=== PATIENT | female | born 1980 | race Caucasian/White ===

== ENCOUNTER 2020-05-05 12:37 | Emergency (ER) | payer SELFPAY | END 2020-05-05 12:41 | LOC: JD.ED 12:37 | DX: Z53.21 Procedure and treatment not carried out due to patient leaving prior to being seen by health care provider (principal) ==

== ENCOUNTER 2022-06-16 18:41 | Emergency (ER) | payer MEDICAID ==
[2022-06-16] MEDS ORDERED: Aspirin 81 MG Tab.Chew PO ONE (19:09)
[2022-06-16] MEDS ORDERED: Sodium Chloride 0.9% 10 ML Syringe FLUSH PRN (19:09)
[2022-06-16 20:29] LABS: ESTIMATED GFR 95 mL/min (>60)
== END 2022-06-16 21:18 | disposition home or self-care (01) ==
LOC: JD.ED 18:41
DX: R07.89 Other chest pain (principal); Z88.6 Allergy status to analgesic agent
CPT/HCPCS: 36415; 71045; 80053; 83735; 84484; 85025; 85379; 85610; 93005; 99285; A9270; J3490

== ENCOUNTER 2022-09-03 19:59 | Emergency (ER) | payer MEDICAID ==
[2022-09-03] MEDS ORDERED: HYDROmorphone 0.5 MG/0.5 ML Syringe IVPUSH ONE (20:51)
[2022-09-03] MEDS ORDERED: Sodium Chloride 0.9% 10 ML Syringe FLUSH PRN (20:51)
[2022-09-03 21:28] LABS: ESTIMATED GFR 82 mL/min (>60)
[2022-09-03] MEDS ORDERED: Iopamidol 612 MG/ML 100 ML Bottle IVPUSH ONE (21:40)
[2022-09-03] MEDS ORDERED: Sodium Chloride 0.9% 10 ML Syringe FLUSH ONE (21:40)
== END 2022-09-03 22:49 | disposition home or self-care (01) ==
LOC: JD.ED 19:59
DX: R10.31 Right lower quadrant pain (principal); Z88.8 Allergy status to other drugs, medicaments and biological substances
CPT/HCPCS: 36415; 74177; 80053; 81003; 84703; 85025; 86140; 96374; 99284; J1170; J3490; Q9967

== ENCOUNTER 2022-11-20 18:15 | Emergency (ER) | payer MEDICAID ==
[2022-11-20] MEDS ORDERED: HYDROmorphone 0.5 MG/0.5 ML Syringe IM ONE (18:46)
== END 2022-11-20 20:43 | disposition home or self-care (01) ==
LOC: JD.ED 18:15
DX: S82.842A Displaced bimalleolar fracture of left lower leg, initial encounter for closed fracture (principal); Z88.6 Allergy status to analgesic agent; Z88.8 Allergy status to other drugs, medicaments and biological substances; X50.1XXA Overexertion from prolonged static or awkward postures, initial encounter; Y93.01 Activity, walking, marching and hiking
CPT/HCPCS: 73610; 96372; 99283; J1170; 29515

== ENCOUNTER 2024-07-26 11:12 | Emergency (ER) | payer MEDICAID ==
[2024-07-26 12:04] LABS: BASOPHILS PERCENT AUTO 0.2 % (0.0-1.0); EOSINOPHILS PERCENT AUTO 0.3 % (0.0-6.0); HEMATOCRIT 17.1 % (37.0-47.0); IMMATURE GRAN ABSOLUTE AUTO 0.03 K/mm3 (0.00-0.05); IMMATURE GRAN PERCENT AUTO 0.5 % (0.0-0.4); LYMPHOCYTES ABSOLUTE AUTO 1.8 K/mm3 (1.0-4.8); LYMPHOCYTES PERCENT AUTO 30.2 % (24.0-44.0); MEAN CORPUSCULAR HEMOGLOBIN 22.4 pg (28.0-32.0); MEAN CORPUSCULAR HGB CONC 29.8 g/dl (32.0-36.0); MEAN PLATELET VOLUME 9.9 fl (9.4-12.3); MONOCYTES ABSOLUTE AUTO 0.5 K/mm3 (0.0-0.8); MONOCYTES PERCENT AUTO 8.3 % (0.0-8.0); NEUTROPHILS ABSOLUTE AUTO 3.6 K/mm3 (1.8-7.7); NEUTROPHILS PERCENT AUTO 60.5 % (41.0-71.0); PLATELET COUNT,PLT 343 K/mm3 (150-400); RED BLOOD CELL COUNT 2.28 M/mm3 (4.10-5.30); WHITE BLOOD CELL COUNT,WBC 5.89 K/mm3 (3.9-11.3)
[2024-07-26 12:12] LABS: HEMOGLOBIN 5.1 gm/dl (12.0-16.0)
[2024-07-26 12:28] LABS: ALANINE AMINOTRANSFERASE,ALT 24 U/L (14-59); ALBUMIN 3.6 g/dl (3.4-5.0); ALKALINE PHOSPHATASE 83 U/L (46-116); ASPARTATE AMNIOTRANSFERASE,AST 20 U/L (15-37); BILIRUBIN TOTAL 0.3 mg/dL (0.2-1.0); BLOOD UREA NITROGEN,BUN 8 mg/dL (7-18); CALCIUM 8.7 mg/dL (8.5-10.1); CARBON DIOXIDE,CO2 25 mEq/L (21-32); CHLORIDE,CL 105 mEq/L (98-107); CREATININE 0.8 mg/dL (0.55-1.02); ESTIMATED GFR 94 mL/min (>60); GLUCOSE RANDOM 102 mg/dL (70-99); PROTEIN TOTAL,TP 7.1 g/dl (6.4-8.2); SODIUM,NA 143 mEq/L (136-145)
[2024-07-26 13:38] LABS: C-REACTIVE PROTEIN 1.03 mg/dL (<0.30); TSH 3.316 uIU/mL (0.358-3.74)
[2024-07-26] MEDS: Sodium Chloride 0.9% 1,000 ML IV ONE (14:14)
== END 2024-07-26 20:15 | disposition home or self-care (01) ==
LOC: JD.ED 11:12
DX: D64.9 Anemia, unspecified (principal); N93.9 Abnormal uterine and vaginal bleeding, unspecified; Z88.8 Allergy status to other drugs, medicaments and biological substances; Z79.899 Other long term (current) drug therapy; Z90.49 Acquired absence of other specified parts of digestive tract
CPT/HCPCS: 36415; 36430; 80053; 84443; 85025; 86140; 86850; 86900; 86901; 86922; 93005; 99285; J7030; P9016; 93010; 99284